=== PATIENT | male | born 1995 | race Caucasian/White ===

== ENCOUNTER 2016-10-25 08:33 | Emergency (ER) | payer MEDICAID ==
[~2016-10-25] VITALS: Ht 170.2 cm; Wt 61.2 kg
[2016-10-25 08:40] VITALS: BP 120/83
== END 2016-10-25 09:16 | disposition home or self-care (01) ==
LOC: ED 08:33
DX: G62.9 Polyneuropathy, unspecified (principal); F31.9 Bipolar disorder, unspecified; F90.9 Attention-deficit hyperactivity disorder, unspecified type

== ENCOUNTER 2017-01-28 11:26 | Emergency (ER) | payer MEDICAID ==
[2017-01-28 11:38] VITALS: BP 116/68
== END 2017-01-28 12:21 | disposition home or self-care (01) ==
LOC: ED 11:26
DX: J02.8 Acute pharyngitis due to other specified organisms (principal)

== ENCOUNTER 2017-10-05 11:28 | Emergency (ER) | payer MEDICAID ==
[~2017-10-05] VITALS: Ht 170.2 cm; Wt 59.0 kg
[2017-10-05 11:32] VITALS: Ht 170.2 cm; Wt 59.0 kg
[2017-10-05 14:29] VITALS: BP 105/64
== END 2017-10-05 14:15 | disposition home or self-care (01) ==
LOC: ED 11:28
DX: R07.89 Other chest pain (principal)
CPT/HCPCS: J1885; Q0092